=== PATIENT | male | born 1975 | race Caucasian/White ===

== ENCOUNTER → 2019-10-04 | Outpatient (CLI) | payer OTHER ==
--- NOTE | 2019-10-04 09:44 | REP ---
ULTRASOUND ABDOMEN: Real-time sonographic evaluation of abdomen performed. Patient has had a prior cholecystectomy. There is no intrahepatic or extrahepatic biliary dilatation, common bile duct measuring 3 mm in diameter. Liver and pancreas demonstrate no gross mass. Pancreas is not optimally seen due to overlying bowel gas. Spleen is normal in size with a length of 11.0 cm. There is no intrinsic abnormality. Kidneys are normal in size and echotexture, right kidney measuring 12.7 x 5.4 x 5.5 cm and left kidney 12.9 x 5.1 x 5.6 cm. There is no renal mass, hydronephrosis, or nephrolithiasis identified. Abdominal is normal in caliber, maximum AP diameter approximately 2.3 cm and distally 1.7 cm. There is no ascites. IMPRESSION: Status post cholecystectomy. No biliary dilatation or free fluid. No other significant finding. Electronically Signed by Greg West MD 10/04/2019 12:29 P
== END ==
LOC: M RAD 07:48
PROVIDERS: ATTEND Internal Medicine Gastroenterology
DX: K76.0 Fatty (change of) liver, not elsewhere classified (principal); Z90.49 Acquired absence of other specified parts of digestive tract